=== PATIENT | male | born 1995 | race Caucasian/White ===

== ENCOUNTER 2021-03-23 20:38 | Emergency (ER) | payer OTHER ==
[~2021-03-23] VITALS: Ht 175.3 cm; Wt 104.5 kg
[2021-03-23 20:49] VITALS: TEMP 98.4
[2021-03-23 21:28] VITALS: BP 122/81; PULSE 84
== END 2021-03-23 21:33 | disposition home or self-care (01) ==
LOC: COL.ER 20:38
DX: S61.210A Laceration without foreign body of right index finger without damage to nail, initial encounter (principal); W26.8XXA Contact with other sharp object(s), not elsewhere classified, initial encounter; Y99.0 Civilian activity done for income or pay